=== PATIENT | male | born 1970 | race Native Hawaiian/Other Pacific Islander ===

== ENCOUNTER 2021-07-20 07:32 | Outpatient (CLI) | payer OTHER ==
[2021-07-20 08:03] LABS: PLATELET COUNT 126 K/uL (142-355)
[2021-07-20 08:18] LABS: POTASSIUM 4.3 mmol/L (3.6-5.2)
== END 2021-07-20 23:00 | disposition home or self-care (01) ==
LOC: LABW 07:32
PROVIDERS: ATTEND Nurse Practitioner Acute Care
DX: E11.8 Type 2 diabetes mellitus with unspecified complications (principal)
CPT/HCPCS: 36415; 80053; 80061; 82306; 83036; 84443; 85027